=== PATIENT | female | born 1990 | race Caucasian/White ===

== ENCOUNTER 2018-11-22 21:24 | Emergency (ER) | payer BC ==
[~2018-11-22] VITALS: Ht 160 cm; Wt 68.0 kg
[2018-11-22 21:32] VITALS: Ht 160 cm; Wt 68.0 kg
[2018-11-22 22:39] LABS: BASOPHIL % 0.1 % (0-2); PLATELET COUNT 174 x10^3mcL (130-400); RED CELL DISTRIBUTION WIDTH 14.3 % (11.5-14.5)
[2018-11-22 22:55] LABS: CARBON DIOXIDE 19.8 mmol/L (21-32); CHLORIDE SERUM 107 mmol/L (98-107); CREATININE SERUM 0.6 mg/dL (0.6-1.0); GFR1 > 60 mL/min; GLUCOSE SERUM 118 mg/dL (74-106); POTASSIUM SERUM 3.2 mmol/L (3.5-5.1); SODIUM SERUM 141 mmol/L (136-145)
[2018-11-22 22:59] LABS: ALBUMIN 3.9 g/dL (3.4-5.0); ALKALINE PHOSPHATASE 70 U/L (46-116); ALT/SGPT 7 U/L (14-59); AST/SGOT 13 U/L (15-37); BILIRUBIN TOTAL 0.35 mg/dL (0.20-1.00); TOTAL PROTEIN, SERUM 7.1 g/dL (6.4-8.2)
[2018-11-22 23:53] LABS: microscopic required? NO
[2018-11-23 00:33] LABS: urine erythrocyte NEGATIVE (NEGATIVE)
[2018-11-23 00:41] LABS: AMPHETAMINE QUAL UR NONE DETECTED (See below)
[2018-11-23 01:02] VITALS: BP 112/62
== END 2018-11-23 01:22 | disposition home or self-care (01) ==
LOC: ED 21:24
PROVIDERS: Emergency Medicine
DX: F41.9 Anxiety disorder, unspecified (principal)
CPT/HCPCS: 82962; G0480; J2060; J7030; Q0092